=== PATIENT | female | born 1970 | race Two or more races ===

== ENCOUNTER 2017-05-03 18:20 | Emergency (ER) | payer OTHER ==
[~2017-05-03] VITALS: Ht 157.5 cm; Wt 88.0 kg
[2017-05-03 18:30] VITALS: Ht 157.5 cm; Wt 88.0 kg
[2017-05-03] MEDS ORDERED: HYDROCODONE/APAP (10/325) TAB PO ONE (20:00)
[2017-05-03] MEDS ORDERED: IBUPROFEN 800 MG TAB PO ONE (20:00)
--- NOTE | 2017-05-03 20:55 | ERD ---
ER Documentation Chief Complaint Date/Time DATE: 05/03/17 TIME: 20:52 Chief Complaint Chest pain, trapezius pain, neck pain, back pain HPI This a 47-year-old female who complains of 4 days of pain. She says the pain is sharp and tends to move areas. She says sometimes she has upper chest pain, sometimes she has pain in her trapezius muscle one or the other, sometimes she has pain in her paracervical region. She says the pain is worse when she moves. She says she has no shortness of breath diaphoresis or weakness she has no pain in her jaw shoulders arms no numbness no focal neurological complaints. ROS All systems reviewed and are negative except as per history of present illness. Medications Home Meds Reported Medications Ferrous Sulfate* (Ferrous Sulfate*) 325 Mg Tabec, 325 MG PO DAILY, TAB 05/03/17 Omeprazole* (Omeprazole*) 20 Mg Capsule.dr, 20 MG PO DAILY, #30 CAP 05/03/17 Cholecalciferol (Vitamin D3) 5,000 Unit Tablet, 5000 UNIT PO DAILY, TAB 05/03/17 Allergies Allergies: Coded Allergies: No Known Allergy (Unverified , 05/03/17) PMhx/Soc Medical and Surgical Hx: pt denies Surgical Hx History of Surgery: No Anesthesia Reaction: No Hx Neurological Disorder: No Hx Respiratory Disorders: No Hx Cardiac Disorders: No Hx Psychiatric Problems: No Hx Miscellaneous Medical Probl: Yes (thalassemia ) Hx Alcohol Use: No Hx Substance Use: No Hx Tobacco Use: No Smoking Status: Never smoker FmHx Family History: No coronary disease Physical Exam Vitals Vital Signs Date Time Temp Pulse Resp B/P Pulse Ox O2 Delivery O2 Flow Rate FiO2 05/03/17 19:23 98.1 71 19 129/84 100 Room Air 05/03/17 18:30 98.7 81 20 156/89 100 Physical Exam Const: Well-developed, well-nourished Head: Atraumatic, normocephalic Eyes: Normal Conjunctiva, PERRLA, EOMI, normal sclera, no nystagmus ENT: Normal External Ears, Nose and Mouth, moist mucus membranes. Neck: Full range of motion. No meningismus, no lymphadenopathy. Resp: Clear to auscultation bilaterally, no wheezing, rhonchi, rales, there is tenderness to both trapezius muscles with a lot of spasm in the pain is reproducible to palpation. The pain is also reproducible in the chest when he twists her trunk left or right. She also says that this hurts her back in the same area where was hurting past 4 days. When she tries to touch her scapulas together this causes pain in the anterior chest bilaterally which is also the same pain Cardio: Regular rate and rhythm, no murmurs, S1 S2 present Abd: Soft, non tender x 4, non distended. Normal bowel sounds, no guarding or rebound, no pulsitile abdominal masses or bruits Skin: No petechiae or rashes, no ecchymosis , no maculopapular rash Back: No midline or flank tenderness Ext: No cyanosis, or edema, FROM x 4, normal inspection, neurovascularly intact x 4 Neur: Awake and alert, STR 5/5 x 4, sensation intact x 4, no focal findings, cerebellum intact Psych: Normal Mood and Affect Results 24 hrs Laboratory Tests Test 05/03/17 20:10 Troponin I < 0.012ng/ml Current Medications Medications (Trade) Dose Ordered Sig/Karen Route PRN Reason Start Time Stop Time Status Last Admin Dose Admin Ibuprofen (Motrin) 800 mg ONCE ONCE PO 05/03/17 20:00 05/03/17 20:01 DC 05/03/17 20:05 Acetaminophen/ Hydrocodone Bitart ([place] (10/325)) 1 tab ONCE ONCE PO 05/03/17 20:00 05/03/17 20:01 DC 05/03/17 20:05 Procedures/MDM EKG: Rate/Rhythm: Normal sinus rhythm heart rate 76, incomplete QRS, ST, QT: NORMAL [place], QRS, QT] Impression: NORMAL EKG Troponin is negative. Feel her pain is musculoskeletal in origin there is no consistent pattern she has pain scattered throughout her shoulders trapezius area chest back of her neck consistent with a cardiac type of history. We will provide her with some musculoskeletal therapy and warning signs to return Departure Diagnosis: Primary Impression: Chest wall pain Additional Impression: Musculoskeletal pain Condition: STEPHANE Faith DO May 03, 2017 20:55
[2017-05-03] MEDS ORDERED: CHOL500010 PO (21:28)
[2017-05-03] MEDS ORDERED: OMEP20CA16 PO (21:28)
[2017-05-03] MEDS ORDERED: FER325 PO (21:28)
[2017-05-03] MEDS ORDERED: HYDR-906 PO (22:03)
[2017-05-03] MEDS ORDERED: METH750T93 PO (22:03)
[2017-05-03] MEDS ORDERED: IBUP800T25 PO (22:04)
[2017-05-03 22:12] VITALS: BP 122/82; PULSE 82; RESP 19; TEMP 98.1
== END 2017-05-03 22:14 | disposition home or self-care (01) ==
LOC: E/R 18:20
DX: R07.89 Other chest pain (principal)
CPT/HCPCS: 84484; 93005; Z7502; Z7610